=== PATIENT | female | born 1980 | race Caucasian/White ===

== ENCOUNTER 2019-08-20 00:10 | Emergency (ER) | payer MEDICAID ==
[~2019-08-20] VITALS: Ht 177.8 cm; Wt 59.0 kg
[2019-08-20 00:52] LABS: BASOPHILS % 1.3 % (0.0-2.0); HEMATOCRIT. 36.9 % (36.0-48.0); HEMOGLOBIN. 12.9 g/dL (12.0-16.0); LYMPHOCYTES % 52.1 % (20.0-50.0); MEAN CORPUSCULAR HEMOGLOBIN 32.3 pg (28.0-32.0); MEAN CORPUSCULAR VOLUME 92.8 fL (81.0-99.0); MEAN PLATELET VOLUME 9.9 fl (7.4-10.4); NEUTROPHILS % 36.6 % (40.0-76.0); PLATELET 170 x1000/uL (130-400); RED BLOOD CELL COUNT 3.98 mill/uL (4.2-5.4); RED CELL DISTRIBUTION WIDTH 13.6 % (11.6-14.6)
[2019-08-20 00:59] LABS: CHLORIDE 111 mEq/L (98-107)
[2019-08-20 03:50] VITALS: BP 125/75
== END 2019-08-20 04:42 | disposition home or self-care (01) ==
LOC: ER 00:38
DX: J06.9 Acute upper respiratory infection, unspecified (principal); B34.9 Viral infection, unspecified; J40 Bronchitis, not specified as acute or chronic; R42 Dizziness and giddiness; R11.0 Nausea; Z98.890 Other specified postprocedural states
CPT/HCPCS: 36415; 71045; 81025; 83880; 84484; 93005; 99284

== ENCOUNTER 2022-03-20 15:17 | Emergency (ER) | payer MEDICAID ==
[~2022-03-20] VITALS: Ht 170.2 cm; Wt 60.0 kg
[2022-03-20 16:22] LABS: CHLORIDE 104 mEq/L (98-107)
[2022-03-20 16:28] LABS: BASOPHILS % 0.5 % (0.0-2.0); EOSINOPHILS % 0.3 % (0.0-5.0); HEMATOCRIT. 38.9 % (36.0-48.0); HEMOGLOBIN. 13.6 g/dL (12.0-16.0); LYMPHOCYTES % 31.9 % (20.0-50.0); MEAN CORPUSCULAR VOLUME 91.5 fL (81.0-99.0); MEAN PLATELET VOLUME 10.1 fl (7.4-10.4); NEUTROPHILS % 60.3 % (40.0-76.0); PLATELET 128 x1000/uL (130-400); RED BLOOD CELL COUNT 4.25 mill/uL (4.2-5.4); RED CELL DISTRIBUTION WIDTH 12.8 % (11.6-14.6)
[2022-03-20] MEDS ORDERED: ALBU6.7H9 INH (19:12)
[2022-03-20] MEDS ORDERED: ONDA4TAB5 MT (19:12)
[2022-03-20] MEDS ORDERED: PROT40 MT (19:12)
[2022-03-20] MEDS ORDERED: ONDANSETRON 4MG ODT PO ONE (19:15)
[2022-03-20 19:35] VITALS: BP 125/80
== END 2022-03-20 19:50 | disposition home or self-care (01) ==
LOC: ER 15:17
DX: B34.9 Viral infection, unspecified (principal)
CPT/HCPCS: 36415; 71045; 80053; 83880; 84484; 85025; 93005; 99285; Q0162

== ENCOUNTER 2022-10-16 19:07 | Emergency (ER) | payer MEDICAID ==
[~2022-10-16] VITALS: Ht 172.7 cm; Wt 59.0 kg
[~2022-10-16 19:07] MED LIST: ALBU6.7H3 INH; ONDA4TAB5 MT; PROT40 MT
[2022-10-16] MEDS ORDERED: AMOX1TAB16 MT (22:35)
[2022-10-16 22:50] VITALS: BP 115/67
== END 2022-10-16 22:50 | disposition home or self-care (01) ==
LOC: ER 19:07
DX: B34.9 Viral infection, unspecified (principal); H66.91 Otitis media, unspecified, right ear
CPT/HCPCS: 99281

== ENCOUNTER 2023-08-27 14:52 | Emergency (ER) | payer MEDICAID ==
[~2023-08-27] VITALS: Ht 175.3 cm; Wt 44.0 kg
[~2023-08-27 14:52] MED LIST changes: +AMOX1TAB16 MT
[2023-08-27 16:08] VITALS: BP 115/71; PULSE 73; RESP 16; TEMP 98.5; O2SAT 100
[2023-08-27] MEDS ORDERED: BENZ200C52 MT (16:52)
== END 2023-08-27 18:17 | disposition home or self-care (01) ==
LOC: ER 14:52
DX: R05.9 Cough, unspecified (principal)
CPT/HCPCS: 71045; 99283

== ENCOUNTER 2025-03-12 19:18 | Emergency (ER) | payer MEDICAID ==
[~2025-03-12] VITALS: Ht 171.4 cm; Wt 60.0 kg
[~2025-03-12 19:18] MED LIST changes: +BENZ200C52 MT
[2025-03-12 19:23] VITALS: O2SAT 99
[2025-03-12] MEDS ORDERED: CYCL5TAB3 MT (20:46)
[2025-03-12] MEDS ORDERED: KETO10TA2 MT (20:46)
[2025-03-12] MEDS ORDERED: LIDO-53 TP (20:46)
[2025-03-12] MEDS: KETOROLAC 30MG/ML VIAL IM ONE (21:15)
[2025-03-12] MEDS: LIDOCAINE 5% PATCH TOP SCH (21:17)
[2025-03-12 21:26] VITALS: BP 112/75; PULSE 66; RESP 14; TEMP 36.8
== END 2025-03-12 21:20 | disposition home or self-care (01) ==
LOC: ER 19:18
DX: M54.2 Cervicalgia (principal); Z79.899 Other long term (current) drug therapy; V89.2XXA Person injured in unspecified motor-vehicle accident, traffic, initial encounter; Y93.89 Activity, other specified; Y92.89 Other specified places as the place of occurrence of the external cause; Y99.8 Other external cause status
CPT/HCPCS: 99283; 81025; 96372; J1885